=== PATIENT | female | born 1970 | race Caucasian/White ===

== ENCOUNTER 2017-01-24 17:08 | Observation (INO) | payer SELFPAY ==
--- NOTE | 2017-01-24 17:47 | DR.H&P ---
H&P - History & Physical for Day of: H&P Date: 01/24/17 - Chief Complaint Chief Complaint: Abdominal pain with nausea and vomiting - Allergies Allergies/Adverse Reactions: Allergies Allergy/AdvReac Type Severity Reaction Status Date / Time MS No Known Drug Allergy Allergy Verified 03/24/16 18:36 [No Known Drug Allergy] - History of Present Illness History of Present Illness: The patient is a 46-year-old white female who was seen in the clinic with complaints of abdominal pain with nausea vomiting. Patient complained of diffuse tenderness. States she has had persistent nausea with intermittent vomiting. Denies diarrhea but does admit to occasional constipation. Patient does have a history of celiac Still disease and states she is not a anything to affect it. Patient states that she is to the point she is not eating due to it aggravates her stomach and makes it worse. Patient does give history of diverticulosis as well. Patient was started on prednisone , Flagyl and Cipro with no improvement within 24 hours. Patient did present to the emergency room at [facility] on the evening of 01/23/2017. Patient subsequently admitted for further evaluation and management - Past Medical History Past Medical History: Anxiety, Depression, Hypertension - Past Surgical History Surgical History: , Cholecystectomy, [employer] Surgery, Hysterectomy, Other - Family History Family Medical History: Coronary Artery Disease - Social History Does patient currently use any type of tobacco product: No Have you used tobacco products in the last 12 months: No Type of Tobacco Use: None Does any household member use tobacco: No Alcohol Use: None Drug Use: None - Review of Systems Constitutional: Weakness, Malaise Eyes: No Symptoms Reported ENT: No Symptoms Reported Respiratory: No Symptoms Reported Cardiovascular: No Symptoms Reported Gastrointestinal: Nausea, Vomiting, Abdominal Pain Genitourinary: No Symptoms Reported Musculoskeletal: Arm Pain (right) Skin: No Symptoms Reported Neurological: No Symptoms Reported - Physical Exam Vital Signs: Blood Pressure 170/91 Oriented: Normal Eyes: Normal Ear: Normal Nose: Normal Throat: Normal Respiratory: Clear Throughout Cardiovascular: Normal : Normal Auscultation: Bowel Sounds: Normal Palpation: Normal Tenderness: Diffuse Skin: Normal Musculoskeletal: Normal Psychiatric: Normal Mood Description: Calm, Sad Affect: Quiet Speech Pattern: Clear - Assessment/Plan (1) Abdominal pain Qualifiers: Abdominal location: generalized Qualified Code(s): R10.84 - Generalized abdominal pain Status: Acute Plan: KUB, CT ABD, Labs, Protonix (2) Nausea & vomiting Qualifiers: Vomiting type: cyclical vomiting Vomiting Intractability: non-intractable Qualified Code(s): G43.A0 - Cyclical vomiting, not intractable Status: Acute Plan: Phenergan, Zofran, IVFs
[2017-01-24 19:14] VITALS: BMI 33.4
[2017-01-24] MEDS ORDERED: FLUVIRIN IM ONE (19:14)
[2017-01-24] MEDS ORDERED: PREVNAR 13 IM ONE (19:14)
[2017-01-24 19:38] LABS: BASOPHILS % (AUTO) 0.5 % (0.2-1.0); HEMATOCRIT 37.3 % (36.0-47.0); HEMOGLOBIN 12.1 g/dL (12.0-16.0); LYMPHOCYTES % (AUTO) 20.5 % (21.0-51.0); MEAN CORPUSCULAR HEMOGLOBIN 26.4 pg (27.0-34.0); MEAN CORPUSCULAR HGB CONC 32.3 g/dL (33.0-35.0); MEAN CORPUSCULAR VOLUME 81.8 fL (80.0-100.0); MONOCYTES # (AUTO) 0.2 x10^3/uL (0.3-0.8); MONOCYTES % (AUTO) 4.5 % (0.0-13.0); NEUTROPHILS # (AUTO) 3.5 x10^3/uL (2.2-4.8); NEUTROPHILS % (AUTO) 73.5 % (42.0-75.0); PLATELET COUNT 279 X10^3/uL (150.0-450.0); RED BLOOD COUNT 4.57 X10^6/uL (3.5-5.4); RED CELL DISTRIBUTION WIDTH 17.9 % (11.6-16.5); WHITE BLOOD COUNT 4.7 X10^3/uL (3.6-10.0)
[2017-01-24] MEDS: NS 1000 ML 1,000 ML IV SCH (19:41)
[2017-01-24] MEDS: MORPHINE SULFATE INJ 2 MG INJ IVP PRN (19:42)
[2017-01-24] MEDS: ZOFRAN INJ 4 MG VIAL IVP PRN (19:42)
[2017-01-24 19:50] LABS: ALANINE AMINOTRANSFERASE 45 Units/L (12-78); ALBUMIN 4.1 g/dL (3.4-5.0); ALKALINE PHOSPHATASE 147 Units/L (46-116); AMYLASE 47 Units/L (25-115); ASPARTATE AMINO TRANSFERASE 42 Units/L (15-37); BLOOD UREA NITROGEN 7 mg/dL (7-18); CALCIUM 9.2 mg/dL (8.5-10.1); CARBON DIOXIDE 28.2 mmol/L (21-32); CHLORIDE 106 mmol/L (98-107); COR NA(FOR HYPERGLY) 143 mmol/L (136-145); CREATININE 0.83 mg/dL (0.55-1.02); LIPASE 106 Units/L (73-393); SODIUM 142 mmol/L (136-145); TOTAL PROTEIN 7.4 g/dL (6.4-8.2); eGFR BLACK RACES > 60 (>60); eGFR NON BLACK RACES > 60 (>60)
--- NOTE | 2017-01-24 20:40 | RAD ---
HISTORY: Abdominal pain with nausea and vomiting Study: Frontal view of the chest, flat and upright views of the abdomen Comparison: None. Findings: Cardiomediastinal silhouette is normal in size. No focal consolidations, pleural effusions or pneumot horax. Osseous structures are without acute abnormality. Flat and upright views of the abdomen demonstrates a normal bowel gas pattern. No free air. No abnor mal calcifications or abnormal soft tissue shadows. No acute bony abnormalities. IMPRESSION: 1. No acute cardiopulmonary disease. 2. No evidence for acute abdominal pathology. Reported By:
[2017-01-24] MEDS ORDERED: PROTONIX INJ 40 MG VIAL IVP SCH (21:00)
[2017-01-24] MEDS: PROTONIX INJ 40 MG VIAL IVP SCH (21:04)
[2017-01-24 21:30] LABS: BILIRUBIN,URINE NEGATIVE (NEGATIVE); BLOOD/HEMOGLOBIN,URINE 1+ (NEGATIVE); GLUCOSE, URINE NEGATIVE (NEGATIVE); KETONES,URINE NEGATIVE (NEGATIVE); LEUKOCYTE ESTERASE ,URINE NEGATIVE (NEGATIVE); NITRITES,URINE NEGATIVE (NEGATIVE); PROTEIN,URINE NEGATIVE (NEGATIVE); UROBILINOGEN,URINE NORMAL (NORMAL)
[2017-01-24 21:38] LABS: APPEARANCE,URINE CLEAR (CLEAR); BACTERIA,URINE NEGATIVE /HPF (NEGATIVE); COLOR,URINE YELLOW (YELLOW); RBC,URINE 0-3 /HPF (NEGATIVE); SQUAMOUS EPITHELIAL CELL,UR RARE /HPF (NEGATIVE)
[2017-01-25] MEDS: PHENERGAN INJ 25 MG IVP PRN ×4 (00:09→22:20)
[2017-01-25] MEDS: MORPHINE SULFATE INJ 2 MG INJ IVP PRN ×4 (00:09→15:35)
[2017-01-25] MEDS: NS 1000 ML 1,000 ML IV SCH ×2 (05:29→16:17)
[2017-01-25] MEDS: PROTONIX INJ 40 MG VIAL IVP SCH ×2 (09:23→20:54)
[2017-01-25] MEDS ORDERED: NS 100 ML IV 100 ML IV ONE (11:45)
[2017-01-25] MEDS: ZOFRAN INJ 4 MG VIAL IVP PRN (15:35)
[2017-01-25] MEDS: CIPRO IV 400 MG PREMIX* 400 MG/200 ML IV.SOLN. IV SCH ×2 (16:16→20:52)
[2017-01-25] MEDS ORDERED: ZESTRIL TAB 20 MG ONE (20:26)
[2017-01-25] MEDS: LITHIUM CARBONATE (PLAIN) PO SCH (20:53)
[2017-01-25] MEDS: SOMA TAB 350 MG PO SCH (20:54)
[2017-01-25] MEDS: ZESTRIL TAB 20 MG PO SCH (20:54)
[2017-01-25] MEDS: AMBIEN PO SCH (20:54)
[2017-01-25] MEDS: LOPRESSOR TAB 25 MG PO SCH (20:54)
[2017-01-25] MEDS: ATIVAN TAB 1 MG PO PRN (20:55)
[2017-01-25] MEDS: BENTYL CAP 10 MG PO SCH (21:00)
[2017-01-25] MEDS: NEURONTIN CAP 400 MG PO SCH (21:00)
[2017-01-25] MEDS ORDERED: PATIENT'S HOME MEDICATION (Dicyclomine Hcl [Dicyclomine Hcl] 20 MG) PO SCH (22:00)
[2017-01-26] MEDS: NORCO 10/325 TAB PO PRN ×2 (00:13→09:08)
[2017-01-26] MEDS: NS 1000 ML 1,000 ML IV SCH ×3 (02:22→21:30)
[2017-01-26] MEDS: BENTYL CAP 10 MG PO SCH ×3 (05:42→21:30)
[2017-01-26] MEDS: NEURONTIN CAP 400 MG PO SCH ×3 (05:42→21:29)
[2017-01-26 06:03] LABS: BASOPHILS % (AUTO) 0.4 % (0.2-1.0); EOSINOPHILS # (AUTO) 0.1 x10^3/uL (0.0-0.2); EOSINOPHILS % (AUTO) 1.2 % (0.9-2.9); HEMOGLOBIN 10.9 g/dL (12.0-16.0); LYMPHOCYTES # (AUTO) 1.9 X10^3/uL (1.3-2.9); LYMPHOCYTES % (AUTO) 30.5 % (21.0-51.0); MEAN CORPUSCULAR HEMOGLOBIN 26.3 pg (27.0-34.0); MEAN PLATELET VOLUME 7.4 fL (7.4-11.0); MONOCYTES # (AUTO) 0.4 x10^3/uL (0.3-0.8); MONOCYTES % (AUTO) 6.9 % (0.0-13.0); NEUTROPHILS # (AUTO) 3.7 x10^3/uL (2.2-4.8); PLATELET COUNT 249 X10^3/uL (150.0-450.0); RED BLOOD COUNT 4.14 X10^6/uL (3.5-5.4); RED CELL DISTRIBUTION WIDTH 17.9 % (11.6-16.5); WHITE BLOOD COUNT 6.1 X10^3/uL (3.6-10.0)
[2017-01-26 06:06] LABS: ALANINE AMINOTRANSFERASE 41 Units/L (12-78); ALBUMIN 3.7 g/dL (3.4-5.0); ALKALINE PHOSPHATASE 119 Units/L (46-116); ASPARTATE AMINO TRANSFERASE 36 Units/L (15-37); BLOOD UREA NITROGEN 6 mg/dL (7-18); CARBON DIOXIDE 25.8 mmol/L (21-32); CHLORIDE 109 mmol/L (98-107); CREATININE 0.93 mg/dL (0.55-1.02); SODIUM 144 mmol/L (136-145); TOTAL PROTEIN 6.8 g/dL (6.4-8.2); eGFR BLACK RACES > 60 (>60); eGFR NON BLACK RACES > 60 (>60)
[2017-01-26] MEDS ORDERED: ZESTRIL TAB 20 MG ONE ×2 (09:04→21:12)
[2017-01-26] MEDS: CIPRO IV 400 MG PREMIX* 400 MG/200 ML IV.SOLN. IV SCH ×2 (09:09→21:22)
[2017-01-26] MEDS: PROTONIX INJ 40 MG VIAL IVP SCH ×2 (09:09→21:27)
[2017-01-26] MEDS: LOPRESSOR TAB 25 MG PO SCH ×2 (09:09→21:29)
[2017-01-26] MEDS: ZESTRIL TAB 20 MG PO SCH ×2 (09:09→21:29)
[2017-01-26] MEDS: LITHIUM CARBONATE (PLAIN) PO SCH ×2 (09:09→21:30)
[2017-01-26] MEDS: OXYBUTYNIN CHLORIDE ER PO SCH (09:09)
[2017-01-26] MEDS: SOMA TAB 350 MG PO SCH ×2 (09:09→21:30)
[2017-01-26] MEDS: ATIVAN TAB 1 MG PO PRN ×2 (09:16→21:30)
[2017-01-26] MEDS: VORTIOXETINE HYDROBROMIDE 10 MG PO SCH (11:32)
[2017-01-26] MEDS: FLAGYL IV PREMIX 500 MG BAG 500 MG/100 ML BAG IV SCH ×2 (14:21→21:23)
[2017-01-26] MEDS: DEMEROL INJ IVP PRN ×2 (15:40→21:24)
[2017-01-26] MEDS ORDERED: LITHIUM CARBONATE 300 MG PO SCH (21:00)
[2017-01-26] MEDS: AMBIEN PO SCH (21:30)
--- NOTE | 2017-01-26 22:26 | PCM.PROG ---
Progress Note - Progress Note for Day of Date: 01/26/17 - Subjective Subjective: CONTINUES TO COMPLAIN OF ABD PAIN. STATES WORSE AFTER EATING. STATES STOOL IS BROWN MUCOUS. STATES SHE FEELS BAD. DOES REQUEST ADDITIONAL PAIN MEDICATION. - Past Medical Family Social History Past Med/Fam/Surg Hx: No changes since H&P Allergies: Allergies No Known Drug Allergies Allergy (Verified 01/24/17 18:27) - Review of Systems ROS: No change since H&P - Vital Signs and I&O's Vital Signs: Temperature 98.1 F Pulse Rate [Right Radial] 78 Respiratory Rate 18 Blood Pressure [Right Arm] 144/75 Blood Pressure 170/91 O2 Sat by Pulse Oximetry 93 Intake and Output: Intake & Output 01/24/17 01/25/17 01/26/17 01/27/17 11:59 11:59 11:59 11:59 Intake Total 544 860 200 Output Total 700 2500 1100 Balance -256 -9790 -986 - Physical Exam Oriented: Normal Eyes: Normal Ear: Normal Nose: Normal Throat: Normal Respiratory: Normal Cardiovascular: Normal : Normal Auscultation: Bowel Sounds: Normal Palpation: Normal Tenderness: Diffuse Skin: Normal Musculoskeletal: Normal Psychiatric: Normal Mood Description: Calm, Sad Affect: Quiet Speech Pattern: Clear, Appropriate - Laboratory and Diagnostics Result Diagrams: 01/26/17 03:15 01/26/17 03:15 Labs: Laboratory WBC 6.1 X10^3/uL (3.6-10.0) 01/26/17 03:15 RBC 4.14 X10^6/uL (3.5-5.4) 01/26/17 03:15 Hgb 10.9 g/dL (12.0-16.0) L 01/26/17 03:15 Hct 34.0 % (36.0-47.0) L 01/26/17 03:15 MCV 82.0 fL (80.0-100.0) 01/26/17 03:15 MCH 26.3 pg (27.0-34.0) L 01/26/17 03:15 MCHC 32.0 g/dL (33.0-35.0) L 01/26/17 03:15 RDW 17.9 % (11.6-16.5) H 01/26/17 03:15 Plt Count 249 X10^3/uL (150.0-450.0) 01/26/17 03:15 MPV 7.4 fL (7.4-11.0) 01/26/17 03:15 Neut % 61.0 % (42.0-75.0) 01/26/17 03:15 Lymph % 30.5 % (21.0-51.0) 01/26/17 03:15 [place] % 6.9 % (0.0-13.0) 01/26/17 03:15 Eos % 1.2 % (0.9-2.9) 01/26/17 03:15 Baso % 0.4 % (0.2-1.0) 01/26/17 03:15 Neut # 3.7 x10^3/uL (2.2-4.8) 01/26/17 03:15 Lymph # 1.9 X10^3/uL (1.3-2.9) 01/26/17 03:15 [place] # 0.4 x10^3/uL (0.3-0.8) 01/26/17 03:15 Eos # 0.1 x10^3/uL (0.0-0.2) 01/26/17 03:15 Baso # 0.0 X10^3/uL (0.0-0.1) 01/26/17 03:15 Absolute Nucleated RBC 0.5 /100WBC 01/26/17 03:15 Sodium 144 mmol/L (136-145) 01/26/17 03:15 Corrected Sodium TNP 01/26/17 03:15 Potassium 3.5 mmol/L (3.5-5.1) 01/26/17 03:15 Chloride 109 mmol/L (98-107) H 01/26/17 03:15 Carbon Dioxide 25.8 mmol/L (21-32) 01/26/17 03:15 BUN 6 mg/dL (7-18) L 01/26/17 03:15 Creatinine 0.93 mg/dL (0.55-1.02) 01/26/17 03:15 Est GFR (MDRD) Af Amer > 60 (>60) 01/26/17 03:15 Est GFR (MDRD) Non-Af > 60 (>60) 01/26/17 03:15 Glucose 98 mg/dL (65-99) 01/26/17 03:15 Calcium 9.0 mg/dL (8.5-10.1) 01/26/17 03:15 Corrected Calcium TNP 01/26/17 03:15 Total Bilirubin 0.20 mg/dL (0.2-1.0) 01/26/17 03:15 AST 36 Units/L (15-37) 01/26/17 03:15 ALT 41 Units/L (12-78) 01/26/17 03:15 Alkaline Phosphatase 119 Units/L (46-116) H 01/26/17 03:15 Total Protein 6.8 g/dL (6.4-8.2) 01/26/17 03:15 Albumin 3.7 g/dL (3.4-5.0) 01/26/17 03:15 Globulin 3.1 g/dL (2.5-4.5) 01/26/17 03:15 Albumin/Globulin Ratio 1.2 Ratio (1.1-2.1) 01/26/17 03:15 Amylase 47 Units/L (25-115) 01/24/17 19:29 Lipase 106 Units/L (73-393) 01/24/17 19:29 Specimen Type Clean catch urine 01/24/17 20:46 Urine Color Yellow (YELLOW) 01/24/17 20:46 Urine Appearance Clear (CLEAR) 01/24/17 20:46 Urine pH 8.0 (5.0 - 8.0) 01/24/17 20:46 Ur Specific [place] 1.015 (1.000-1.030) 01/24/17 20:46 Urine Protein Negative (NEGATIVE) 01/24/17 20:46 Urine Glucose (UA) Negative (NEGATIVE) 01/24/17 20:46 Urine Ketones Negative (NEGATIVE) 01/24/17 20:46 Urine Occult Blood 1+ (NEGATIVE) 01/24/17 20:46 Urine Nitrite Negative (NEGATIVE) 01/24/17 20:46 Urine Bilirubin Negative (NEGATIVE) 01/24/17 20:46 Urine Urobilinogen Normal (NORMAL) 01/24/17 20:46 Ur Leukocyte Esterase Negative (NEGATIVE) 01/24/17 20:46 Urine RBC 0-3 /HPF (NEGATIVE) 01/24/17 20:46 Urine WBC 0-3 /HPF (NEGATIVE) 01/24/17 20:46 Ur Squamous Epith Cells Rare /HPF (NEGATIVE) 01/24/17 20:46 Urine Bacteria Negative /HPF (NEGATIVE) 01/24/17 20:46 Ur Culture Indicated? No/not indicated 01/24/17 20:46 Radiology Reviewed: Yes - Plan (1) Abdominal pain Status: Acute Qualifiers: Abdominal location: generalized Qualified Code(s): R10.84 - Generalized abdominal pain Plan: KUB, CT ABD, Labs, Protonix (2) Nausea & vomiting Status: Acute Qualifiers: Vomiting type: cyclical vomiting Vomiting Intractability: non-intractable Qualified Code(s): G43.A0 - Cyclical vomiting, not intractable Plan: Phenergan, Zofran, IVFs (3) Colitis Status: Acute Plan: IV CIPRO AND FLAGYL (4) Celiac disease Status: Acute Plan: GLUTEN FREE DIET.
[2017-01-27] MEDS: NEURONTIN CAP 400 MG PO SCH ×3 (05:19→21:32)
[2017-01-27] MEDS: BENTYL CAP 10 MG PO SCH ×3 (05:19→21:33)
[2017-01-27] MEDS: DEMEROL INJ IVP PRN ×4 (05:20→21:26)
[2017-01-27] MEDS: FLAGYL IV PREMIX 500 MG BAG 500 MG/100 ML BAG IV SCH ×3 (05:20→21:31)
[2017-01-27 05:22] LABS: BASOPHILS % (AUTO) 0.7 % (0.2-1.0); EOSINOPHILS # (AUTO) 0.1 x10^3/uL (0.0-0.2); EOSINOPHILS % (AUTO) 2.1 % (0.9-2.9); HEMATOCRIT 32.5 % (36.0-47.0); HEMOGLOBIN 10.5 g/dL (12.0-16.0); LYMPHOCYTES # (AUTO) 1.6 X10^3/uL (1.3-2.9); MEAN CORPUSCULAR HEMOGLOBIN 26.6 pg (27.0-34.0); MEAN CORPUSCULAR HGB CONC 32.3 g/dL (33.0-35.0); MEAN CORPUSCULAR VOLUME 82.2 fL (80.0-100.0); MEAN PLATELET VOLUME 7.4 fL (7.4-11.0); MONOCYTES # (AUTO) 0.3 x10^3/uL (0.3-0.8); MONOCYTES % (AUTO) 7.4 % (0.0-13.0); NEUTROPHILS # (AUTO) 2.5 x10^3/uL (2.2-4.8); NEUTROPHILS % (AUTO) 53.8 % (42.0-75.0); PLATELET COUNT 234 X10^3/uL (150.0-450.0); RED BLOOD COUNT 3.96 X10^6/uL (3.5-5.4); RED CELL DISTRIBUTION WIDTH 17.9 % (11.6-16.5); WHITE BLOOD COUNT 4.6 X10^3/uL (3.6-10.0)
[2017-01-27 05:30] LABS: BLOOD UREA NITROGEN 5 mg/dL (7-18); CALCIUM 8.9 mg/dL (8.5-10.1); CARBON DIOXIDE 28.4 mmol/L (21-32); CHLORIDE 109 mmol/L (98-107); CREATININE 0.81 mg/dL (0.55-1.02); SODIUM 145 mmol/L (136-145); eGFR BLACK RACES > 60 (>60); eGFR NON BLACK RACES > 60 (>60)
[2017-01-27] MEDS ORDERED: ZESTRIL TAB 20 MG ONE ×2 (09:35→20:11)
[2017-01-27] MEDS: CIPRO IV 400 MG PREMIX* 400 MG/200 ML IV.SOLN. IV SCH ×2 (09:43→20:18)
[2017-01-27] MEDS: SOMA TAB 350 MG PO SCH ×2 (09:43→20:19)
[2017-01-27] MEDS: PROTONIX INJ 40 MG VIAL IVP SCH ×2 (09:43→21:33)
[2017-01-27] MEDS: OXYBUTYNIN CHLORIDE ER PO SCH (09:43)
[2017-01-27] MEDS: LITHIUM CARBONATE (PLAIN) PO SCH ×2 (09:43→20:19)
[2017-01-27] MEDS: ZESTRIL TAB 20 MG PO SCH ×2 (09:43→20:19)
[2017-01-27] MEDS: LOPRESSOR TAB 25 MG PO SCH ×2 (09:44→21:32)
[2017-01-27] MEDS: VORTIOXETINE HYDROBROMIDE 10 MG PO SCH (11:18)
[2017-01-27] MEDS: NORCO 10/325 TAB PO PRN (15:33)
[2017-01-27] MEDS: NS 1000 ML 1,000 ML IV SCH (17:29)
[2017-01-27] MEDS: ZOFRAN INJ 4 MG VIAL IVP PRN (17:29)
[2017-01-27] MEDS: AMBIEN PO SCH (20:18)
[2017-01-27] MEDS: ATIVAN TAB 1 MG PO PRN (20:19)
[2017-01-27] MEDS: PHENERGAN INJ 25 MG IVP PRN (21:32)
--- NOTE | 2017-01-27 21:52 | PCM.PROG ---
Progress Note - Progress Note for Day of Date: 01/27/17 - Subjective Subjective: INTIALLY EARLY AFTERNOON WAS FEELING BETTER. ADVANCED DIET. PATIENT THEN HAD COMPLAINTS OF ABD PAIN. STATES WORSE AFTER EATING. STATED SHE IS RECEIVING MEALS WITH GLUTEN. STATES SHE FEELS BAD. DOES REQUEST ADDITIONAL PAIN MEDICATION. - Past Medical Family Social History Past Med/Fam/Surg Hx: No changes since H&P Allergies: Allergies No Known Drug Allergies Allergy (Verified 01/24/17 18:27) - Review of Systems ROS: No change since H&P - Vital Signs and I&O's Vital Signs: Temperature 98.2 F Pulse Rate [Right Radial] 68 Respiratory Rate 20 Blood Pressure [Right Arm] 116/70 Blood Pressure 170/91 O2 Sat by Pulse Oximetry 95 Intake and Output: Intake & Output 01/25/17 01/26/17 01/27/17 01/28/17 11:59 11:59 11:59 11:59 Intake Total 474 848 4909 240 Output Total 700 2500 1700 Balance -156 -1640 160 240 - Physical Exam Oriented: Normal Eyes: Normal Ear: Normal Nose: Normal Throat: Normal Respiratory: Normal Cardiovascular: Normal : Normal Auscultation: Bowel Sounds: Normal Palpation: Normal Tenderness: Diffuse Skin: Normal Musculoskeletal: Normal Psychiatric: Normal Mood Description: Calm, Sad Affect: Quiet Speech Pattern: Clear, Appropriate - Laboratory and Diagnostics Result Diagrams: 01/27/17 03:20 01/27/17 03:20 Labs: Laboratory WBC 4.6 X10^3/uL (3.6-10.0) 01/27/17 03:20 RBC 3.96 X10^6/uL (3.5-5.4) 01/27/17 03:20 Hgb 10.5 g/dL (12.0-16.0) L 01/27/17 03:20 Hct 32.5 % (36.0-47.0) L 01/27/17 03:20 MCV 82.2 fL (80.0-100.0) 01/27/17 03:20 MCH 26.6 pg (27.0-34.0) L 01/27/17 03:20 MCHC 32.3 g/dL (33.0-35.0) L 01/27/17 03:20 RDW 17.9 % (11.6-16.5) H 01/27/17 03:20 Plt Count 234 X10^3/uL (150.0-450.0) 01/27/17 03:20 MPV 7.4 fL (7.4-11.0) 01/27/17 03:20 Neut % 53.8 % (42.0-75.0) 01/27/17 03:20 Lymph % 36.0 % (21.0-51.0) 01/27/17 03:20 [place] % 7.4 % (0.0-13.0) 01/27/17 03:20 Eos % 2.1 % (0.9-2.9) 01/27/17 03:20 Baso % 0.7 % (0.2-1.0) 01/27/17 03:20 Neut # 2.5 x10^3/uL (2.2-4.8) 01/27/17 03:20 Lymph # 1.6 X10^3/uL (1.3-2.9) 01/27/17 03:20 [place] # 0.3 x10^3/uL (0.3-0.8) 01/27/17 03:20 Eos # 0.1 x10^3/uL (0.0-0.2) 01/27/17 03:20 Baso # 0.0 X10^3/uL (0.0-0.1) 01/27/17 03:20 Absolute Nucleated RBC 0.2 /100WBC 01/27/17 03:20 Sodium 145 mmol/L (136-145) 01/27/17 03:20 Corrected Sodium TNP 01/27/17 03:20 Potassium 3.7 mmol/L (3.5-5.1) 01/27/17 03:20 Chloride 109 mmol/L (98-107) H 01/27/17 03:20 Carbon Dioxide 28.4 mmol/L (21-32) 01/27/17 03:20 BUN 5 mg/dL (7-18) L 01/27/17 03:20 Creatinine 0.81 mg/dL (0.55-1.02) 01/27/17 03:20 Est GFR (MDRD) Af Amer > 60 (>60) 01/27/17 03:20 Est GFR (MDRD) Non-Af > 60 (>60) 01/27/17 03:20 Glucose 90 mg/dL (65-99) 01/27/17 03:20 Calcium 8.9 mg/dL (8.5-10.1) 01/27/17 03:20 Corrected Calcium TNP 01/26/17 03:15 Total Bilirubin 0.20 mg/dL (0.2-1.0) 01/26/17 03:15 AST 36 Units/L (15-37) 01/26/17 03:15 ALT 41 Units/L (12-78) 01/26/17 03:15 Alkaline Phosphatase 119 Units/L (46-116) H 01/26/17 03:15 Total Protein 6.8 g/dL (6.4-8.2) 01/26/17 03:15 Albumin 3.7 g/dL (3.4-5.0) 01/26/17 03:15 Globulin 3.1 g/dL (2.5-4.5) 01/26/17 03:15 Albumin/Globulin Ratio 1.2 Ratio (1.1-2.1) 01/26/17 03:15 Amylase 47 Units/L (25-115) 01/24/17 19:29 Lipase 106 Units/L (73-393) 01/24/17 19:29 Specimen Type Clean catch urine 01/24/17 20:46 Urine Color Yellow (YELLOW) 01/24/17 20:46 Urine Appearance Clear (CLEAR) 01/24/17 20:46 Urine pH 8.0 (5.0 - 8.0) 01/24/17 20:46 Ur Specific [place] 1.015 (1.000-1.030) 01/24/17 20:46 Urine Protein Negative (NEGATIVE) 01/24/17 20:46 Urine Glucose (UA) Negative (NEGATIVE) 01/24/17 20:46 Urine Ketones Negative (NEGATIVE) 01/24/17 20:46 Urine Occult Blood 1+ (NEGATIVE) 01/24/17 20:46 Urine Nitrite Negative (NEGATIVE) 01/24/17 20:46 Urine Bilirubin Negative (NEGATIVE) 01/24/17 20:46 Urine Urobilinogen Normal (NORMAL) 01/24/17 20:46 Ur Leukocyte Esterase Negative (NEGATIVE) 01/24/17 20:46 Urine RBC 0-3 /HPF (NEGATIVE) 01/24/17 20:46 Urine WBC 0-3 /HPF (NEGATIVE) 01/24/17 20:46 Ur Squamous Epith Cells Rare /HPF (NEGATIVE) 01/24/17 20:46 Urine Bacteria Negative /HPF (NEGATIVE) 01/24/17 20:46 Ur Culture Indicated? No/not indicated 01/24/17 20:46 - Plan (1) Abdominal pain Status: Acute Qualifiers: Abdominal location: generalized Qualified Code(s): R10.84 - Generalized abdominal pain Plan: CT ABD, Labs, Protonix (2) Nausea & vomiting Status: Acute Qualifiers: Vomiting type: cyclical vomiting Vomiting Intractability: non-intractable Qualified Code(s): G43.A0 - Cyclical vomiting, not intractable Plan: Phenergan, Zofran, IVFs (3) Colitis Status: Acute Plan: IV CIPRO AND FLAGYL (4) Celiac disease Status: Acute Plan: GLUTEN FREE DIET.
[2017-01-28] MEDS: NORCO 10/325 TAB PO PRN ×2 (00:33→16:58)
[2017-01-28] MEDS: DEMEROL INJ IVP PRN ×3 (04:11→21:45)
[2017-01-28 05:14] LABS: BASOPHILS % (AUTO) 0.3 % (0.2-1.0); EOSINOPHILS # (AUTO) 0.1 x10^3/uL (0.0-0.2); EOSINOPHILS % (AUTO) 1.6 % (0.9-2.9); HEMOGLOBIN 10.4 g/dL (12.0-16.0); LYMPHOCYTES # (AUTO) 1.2 X10^3/uL (1.3-2.9); LYMPHOCYTES % (AUTO) 18.4 % (21.0-51.0); MEAN CORPUSCULAR HEMOGLOBIN 26.7 pg (27.0-34.0); MEAN CORPUSCULAR HGB CONC 32.6 g/dL (33.0-35.0); MEAN PLATELET VOLUME 7.4 fL (7.4-11.0); MONOCYTES # (AUTO) 0.3 x10^3/uL (0.3-0.8); MONOCYTES % (AUTO) 5.4 % (0.0-13.0); NEUTROPHILS # (AUTO) 4.7 x10^3/uL (2.2-4.8); NEUTROPHILS % (AUTO) 74.3 % (42.0-75.0); PLATELET COUNT 234 X10^3/uL (150.0-450.0); RED BLOOD COUNT 3.91 X10^6/uL (3.5-5.4); RED CELL DISTRIBUTION WIDTH 17.6 % (11.6-16.5); WHITE BLOOD COUNT 6.4 X10^3/uL (3.6-10.0)
[2017-01-28 05:37] LABS: ALANINE AMINOTRANSFERASE 33 Units/L (12-78); ALBUMIN 3.4 g/dL (3.4-5.0); ALKALINE PHOSPHATASE 116 Units/L (46-116); ASPARTATE AMINO TRANSFERASE 30 Units/L (15-37); BLOOD UREA NITROGEN 4 mg/dL (7-18); CALCIUM 8.5 mg/dL (8.5-10.1); CARBON DIOXIDE 26.4 mmol/L (21-32); CHLORIDE 110 mmol/L (98-107); COR NA(FOR HYPERGLY) 145 mmol/L (136-145); CREATININE 0.89 mg/dL (0.55-1.02); SODIUM 144 mmol/L (136-145); TOTAL PROTEIN 6.3 g/dL (6.4-8.2); eGFR BLACK RACES > 60 (>60); eGFR NON BLACK RACES > 60 (>60)
[2017-01-28] MEDS: FLAGYL IV PREMIX 500 MG BAG 500 MG/100 ML BAG IV SCH ×2 (05:48→14:29)
[2017-01-28] MEDS: NS 1000 ML 1,000 ML IV SCH (05:48)
[2017-01-28] MEDS: NEURONTIN CAP 400 MG PO SCH ×3 (05:51→23:31)
[2017-01-28] MEDS: BENTYL CAP 10 MG PO SCH ×3 (05:51→23:30)
[2017-01-28] MEDS ORDERED: ZESTRIL TAB 20 MG ONE ×2 (09:18→23:22)
[2017-01-28] MEDS: PROTONIX INJ 40 MG VIAL IVP SCH (09:37)
[2017-01-28] MEDS: CIPRO IV 400 MG PREMIX* 400 MG/200 ML IV.SOLN. IV SCH ×2 (09:37→21:43)
[2017-01-28] MEDS: PHENERGAN INJ 25 MG IVP PRN (09:38)
[2017-01-28] MEDS: ZOFRAN INJ 4 MG VIAL IVP PRN (16:58)
[2017-01-28] MEDS: OXYBUTYNIN CHLORIDE ER PO SCH (17:00)
[2017-01-28] MEDS: LITHIUM CARBONATE (PLAIN) PO SCH ×2 (17:00→21:10)
[2017-01-28] MEDS: ZESTRIL TAB 20 MG PO SCH ×2 (17:00→23:31)
[2017-01-28] MEDS: LOPRESSOR TAB 25 MG PO SCH ×2 (17:00→21:10)
[2017-01-28] MEDS: SOMA TAB 350 MG PO SCH ×2 (17:01→21:12)
[2017-01-28] MEDS: VORTIOXETINE HYDROBROMIDE 10 MG PO SCH (17:07)
[2017-01-28] MEDS: ATIVAN TAB 1 MG PO PRN (17:08)
[2017-01-28] MEDS: AMBIEN PO SCH (21:43)
[2017-01-29] MEDS: FLAGYL IV PREMIX 500 MG BAG 500 MG/100 ML BAG IV SCH ×2 (00:30→05:50)
[2017-01-29] MEDS: PROTONIX INJ 40 MG VIAL IVP SCH ×2 (01:38→10:54)
[2017-01-29 05:25] LABS: BASOPHILS % (AUTO) 0.7 % (0.2-1.0); EOSINOPHILS # (AUTO) 0.2 x10^3/uL (0.0-0.2); EOSINOPHILS % (AUTO) 2.8 % (0.9-2.9); HEMATOCRIT 34.4 % (36.0-47.0); HEMOGLOBIN 11.1 g/dL (12.0-16.0); LYMPHOCYTES # (AUTO) 1.9 X10^3/uL (1.3-2.9); MEAN CORPUSCULAR HEMOGLOBIN 26.4 pg (27.0-34.0); MEAN CORPUSCULAR HGB CONC 32.3 g/dL (33.0-35.0); MEAN CORPUSCULAR VOLUME 81.9 fL (80.0-100.0); MEAN PLATELET VOLUME 7.6 fL (7.4-11.0); MONOCYTES # (AUTO) 0.3 x10^3/uL (0.3-0.8); MONOCYTES % (AUTO) 6.3 % (0.0-13.0); NEUTROPHILS % (AUTO) 55.2 % (42.0-75.0); PLATELET COUNT 235 X10^3/uL (150.0-450.0); RED CELL DISTRIBUTION WIDTH 17.7 % (11.6-16.5); WHITE BLOOD COUNT 5.5 X10^3/uL (3.6-10.0)
[2017-01-29 05:32] LABS: ALANINE AMINOTRANSFERASE 34 Units/L (12-78); ALBUMIN 3.7 g/dL (3.4-5.0); ALKALINE PHOSPHATASE 124 Units/L (46-116); ASPARTATE AMINO TRANSFERASE 28 Units/L (15-37); BLOOD UREA NITROGEN 6 mg/dL (7-18); CALCIUM 8.8 mg/dL (8.5-10.1); CARBON DIOXIDE 27.2 mmol/L (21-32); CHLORIDE 109 mmol/L (98-107); CREATININE 0.78 mg/dL (0.55-1.02); SODIUM 146 mmol/L (136-145); TOTAL PROTEIN 6.6 g/dL (6.4-8.2); eGFR BLACK RACES > 60 (>60); eGFR NON BLACK RACES > 60 (>60)
[2017-01-29] MEDS: DEMEROL INJ IVP PRN (05:46)
[2017-01-29] MEDS: BENTYL CAP 10 MG PO SCH (05:53)
[2017-01-29] MEDS: NEURONTIN CAP 400 MG PO SCH (05:53)
[2017-01-29] MEDS ORDERED: PNEUMOVAX 23 IM ONE (09:50)
[2017-01-29] MEDS ORDERED: FLUVIRIN IM ONE (09:50)
[2017-01-29] MEDS ORDERED: ZESTRIL TAB 20 MG ONE (10:08)
[2017-01-29] MEDS: CIPRO IV 400 MG PREMIX* 400 MG/200 ML IV.SOLN. IV SCH (10:52)
[2017-01-29] MEDS: SOMA TAB 350 MG PO SCH (10:54)
[2017-01-29] MEDS: OXYBUTYNIN CHLORIDE ER PO SCH (10:54)
[2017-01-29] MEDS: ZESTRIL TAB 20 MG PO SCH (10:55)
[2017-01-29] MEDS: LOPRESSOR TAB 25 MG PO SCH (10:55)
[2017-01-29] MEDS: LITHIUM CARBONATE (PLAIN) PO SCH (10:55)
[2017-01-29] MEDS: NORCO 10/325 TAB PO PRN (11:01)
[2017-01-29] MEDS: VORTIOXETINE HYDROBROMIDE 10 MG PO SCH (11:03)
[2017-01-29 16:04] VITALS: BP 130/72
== END 2017-01-29 17:05 | disposition home or self-care (01) ==
LOC: MED/SURG 17:08
PROVIDERS: ADMIT Internal Medicine; ATTEND Internal Medicine
PROC: 3E0234Z Introduction of Serum, Toxoid and Vaccine into Muscle, Percutaneous Approach (ICD-10-PCS; principal; 2017-01-29)
DX: R10.84 Generalized abdominal pain (principal); R11.2 Nausea with vomiting, unspecified; K59.09 Other constipation; I10 Essential (primary) hypertension; F41.8 Other specified anxiety disorders; F32.89 Other specified depressive episodes; K90.0 Celiac disease; K52.89 Other specified noninfective gastroenteritis and colitis; Z23 Encounter for immunization; Z87.19 Personal history of other diseases of the digestive system
CPT/HCPCS: 36415; 72110; 74022; 74176; 74177; 80048; 80053; 81001; 82150; 83690; 85025; 85652; 86141; 90686; 94762; A4216; A4222; C9113; S0030; S0195; G0378; J0744; J2175; J2270; J2405; J2550

== ENCOUNTER 2017-05-14 11:51 | Observation (INO) | payer SELFPAY ==
--- NOTE | 2017-05-14 12:35 | DR.H&P ---
H&P - History & Physical for Day of: H&P Date: 05/14/17 - Chief Complaint Chief Complaint: ABD PAIN WITH NAUSEA - Allergies Allergies/Adverse Reactions: Allergies Allergy/AdvReac Type Severity Reaction Status Date / Time No Known Drug Allergies Allergy Verified 01/24/17 18:27 - History of Present Illness History of Present Illness: The patient is a 47wf who presents to the [facility] with complaint of abdominal pain radiating into right upper quadrant and flank area since Saturday. States she has had nausea but no vomiting. States stool has mucous in it. Denies hematochezia or melena. Denies fever. Has tried take home and OTC meds with no relief. Has history of Celiacs disease. States she watches what she eats carefully. - Past Medical History Past Medical History: Anxiety, Depression, Hypertension Additional Medical History: Celiacs Disease - Past Surgical History Surgical History: , Cholecystectomy, Hysterectomy, Tonsillectomy, Other Additional Surgical History: EGD/Colonoscopy - Family History Family Medical History: Cancer, Hypertension - Social History Does patient currently use any type of tobacco product: No Have you used tobacco products in the last 12 months: No Type of Tobacco Use: None Does any household member use tobacco: No Alcohol Use: None Drug Use: None - Review of Systems Constitutional: Malaise Eyes: No Symptoms Reported ENT: No Symptoms Reported Respiratory: No Symptoms Reported Cardiovascular: No Symptoms Reported Gastrointestinal: Nausea, Abdominal Pain Genitourinary: No Symptoms Reported Musculoskeletal: No Symptoms Reported Skin: No Symptoms Reported Neurological: No Symptoms Reported - Physical Exam Vital Signs: Blood Pressure [Left Arm] 130/72 Blood Pressure [Right Arm] 146/75 Blood Pressure 130/72 Oriented: Normal Eyes: Normal Ear: Normal Nose: Normal Throat: Normal Respiratory: Clear Throughout Cardiovascular: Normal : Normal Auscultation: Bowel Sounds: Normal Palpation: Normal Tenderness: RUQ, Moderate Skin: Normal Musculoskeletal: Normal Psychiatric: Normal Mood Description: Calm Affect: Flat Speech Pattern: Clear - Assessment/Plan (1) Abdominal pain Qualifiers: Abdominal location: generalized Qualified Code(s): R10.84 - Generalized abdominal pain Status: Acute Plan: CT Abd, Labs, Pepcid, Antiemetics, Morphine (2) Celiac disease Status: Acute (3) Colitis Status: Acute Plan: CT Abd, Labs, Pepcid, Antiemetics, Morphine, Flagyl, Cipro
[2017-05-14] MEDS ORDERED: PHENERGAN INJ 25 MG IVP PRN (14:30)
[2017-05-14] MEDS ORDERED: ZOFRAN INJ 4 MG VIAL IVP PRN (14:30)
[2017-05-14] MEDS ORDERED: PEPCID 20 MG IV PREMIX* 20 MG/50 ML BAG IV PRN (14:30)
[2017-05-14] MEDS ORDERED: FLAGYL IV PREMIX 500 MG BAG 500 MG/100 ML BAG IV SCH (15:00)
[2017-05-14 15:10] LABS: BASOPHILS # (AUTO) 0.1 X10^3/uL (0.0-0.1); BASOPHILS % (AUTO) 0.9 % (0.2-1.0); EOSINOPHILS % (AUTO) 0.8 % (0.9-2.9); HEMATOCRIT 37.2 % (36.0-47.0); HEMOGLOBIN 11.9 g/dL (12.0-16.0); LYMPHOCYTES # (AUTO) 1.5 X10^3/uL (1.3-2.9); LYMPHOCYTES % (AUTO) 26.3 % (21.0-51.0); MEAN CORPUSCULAR HEMOGLOBIN 26.3 pg (27.0-34.0); MEAN CORPUSCULAR HGB CONC 31.9 g/dL (33.0-35.0); MEAN CORPUSCULAR VOLUME 82.6 fL (80.0-100.0); MEAN PLATELET VOLUME 7.1 fL (7.4-11.0); MONOCYTES # (AUTO) 0.3 x10^3/uL (0.3-0.8); MONOCYTES % (AUTO) 5.9 % (0.0-13.0); NEUTROPHILS # (AUTO) 3.8 x10^3/uL (2.2-4.8); NEUTROPHILS % (AUTO) 66.1 % (42.0-75.0); PLATELET COUNT 378 X10^3/uL (150.0-450.0); RED BLOOD COUNT 4.51 X10^6/uL (3.5-5.4); RED CELL DISTRIBUTION WIDTH 19.3 % (11.6-16.5); WHITE BLOOD COUNT 5.8 X10^3/uL (3.6-10.0)
[2017-05-14 15:16] LABS: ALANINE AMINOTRANSFERASE 26 Units/L (12-78); ALBUMIN 4.1 g/dL (3.4-5.0); ALKALINE PHOSPHATASE 139 Units/L (46-116); AMYLASE 51 Units/L (25-115); ASPARTATE AMINO TRANSFERASE 21 Units/L (15-37); BLOOD UREA NITROGEN 7 mg/dL (7-18); CALCIUM 9.1 mg/dL (8.5-10.1); CARBON DIOXIDE 26.4 mmol/L (21-32); CHLORIDE 105 mmol/L (98-107); CREATININE 0.82 mg/dL (0.55-1.02); LIPASE 118 Units/L (73-393); SODIUM 140 mmol/L (136-145); TOTAL PROTEIN 7.8 g/dL (6.4-8.2); eGFR BLACK RACES > 60 (>60); eGFR NON BLACK RACES > 60 (>60)
[2017-05-14 16:01] VITALS: BMI 30.7
[2017-05-14] MEDS: NS 1000 ML 1,000 ML IV SCH (16:22)
[2017-05-14] MEDS: FLAGYL IV PREMIX 500 MG BAG 500 MG/100 ML BAG IV SCH ×2 (16:23→23:00)
[2017-05-14] MEDS: MORPHINE SULFATE INJ 2 MG INJ IVP PRN ×2 (16:23→20:55)
[2017-05-14] MEDS: CIPRO IV 400 MG PREMIX* 400 MG/200 ML IV.SOLN. IV SCH (21:00)
[2017-05-14] MEDS ORDERED: CIPRO IV 400 MG PREMIX* 400 MG/200 ML IV.SOLN. IV SCH (21:00)
[2017-05-14 21:26] LABS: BILIRUBIN,URINE NEGATIVE (NEGATIVE); BLOOD/HEMOGLOBIN,URINE NEGATIVE (NEGATIVE); GLUCOSE, URINE NEGATIVE (NEGATIVE); KETONES,URINE NEGATIVE (NEGATIVE); LEUKOCYTE ESTERASE ,URINE NEGATIVE (NEGATIVE); NITRITES,URINE NEGATIVE (NEGATIVE); PH,URINE 6.5 (5.0 - 8.0); PROTEIN,URINE NEGATIVE (NEGATIVE); UROBILINOGEN,URINE NORMAL (NORMAL)
[2017-05-14 21:28] LABS: APPEARANCE,URINE CLEAR (CLEAR); BACTERIA,URINE NEGATIVE /HPF (NEGATIVE); COLOR,URINE YELLOW (YELLOW); RBC,URINE NEG /HPF (NEGATIVE); SQUAMOUS EPITHELIAL CELL,UR NEGATIVE /HPF (NEGATIVE)
--- NOTE | 2017-05-14 22:11 | CT ---
CT abdomen without contrast Indication: Mid abdominal pain Comparison: 01/27/2017 Technique: CT images of the abdomen were obtained without contrast. Automatic exposure control was ut ilized. Findings: No acute skeletal abnormality identified. Interbody hardware at L5-S1 is grossly stable. Th e lung bases are clear. Previous cholecystectomy is noted. Evaluation of the abdominal pelvic viscera is limited without cont rast. Accounting for this, the liver, spleen, stomach, duodenum, pancreas, adrenals, and kidneys are within normal limits. No significant thickening or dilatation of the visualized lower GI tract is olive reciated. A few scattered colonic diverticula are noted. The visualized appendix is normal. No free f luid or adenopathy is observed. Impression: No acute process identified to explain patient's symptoms. Colonic diverticulosis. Previous cholecystectomy. Reported By:
[2017-05-14] MEDS ORDERED: NORCO 5/325 MG TAB PO PRN (23:28)
[2017-05-14] MEDS ORDERED: AMBIEN PO PRN (23:29)
[2017-05-15] MEDS: MORPHINE SULFATE INJ 2 MG INJ IVP PRN ×3 (03:05→12:40)
[2017-05-15] MEDS: FLAGYL IV PREMIX 500 MG BAG 500 MG/100 ML BAG IV SCH ×3 (04:58→14:42)
[2017-05-15] MEDS: NS 1000 ML 1,000 ML IV SCH ×2 (07:16→11:30)
[2017-05-15] MEDS: CIPRO IV 400 MG PREMIX* 400 MG/200 ML IV.SOLN. IV SCH (08:58)
[2017-05-15] MEDS ORDERED: NORCO 10/325 TAB PO PRN (09:22)
[2017-05-15 12:16] LABS: BASOPHILS % (AUTO) 0.6 % (0.2-1.0); HEMATOCRIT 34.6 % (36.0-47.0); HEMOGLOBIN 11.1 g/dL (12.0-16.0); LYMPHOCYTES # (AUTO) 1.6 X10^3/uL (1.3-2.9); LYMPHOCYTES % (AUTO) 34.8 % (21.0-51.0); MEAN CORPUSCULAR HEMOGLOBIN 26.6 pg (27.0-34.0); MEAN CORPUSCULAR HGB CONC 32.1 g/dL (33.0-35.0); MEAN CORPUSCULAR VOLUME 82.9 fL (80.0-100.0); MONOCYTES # (AUTO) 0.3 x10^3/uL (0.3-0.8); MONOCYTES % (AUTO) 6.1 % (0.0-13.0); NEUTROPHILS # (AUTO) 2.6 x10^3/uL (2.2-4.8); NEUTROPHILS % (AUTO) 57.5 % (42.0-75.0); PLATELET COUNT 342 X10^3/uL (150.0-450.0); RED BLOOD COUNT 4.17 X10^6/uL (3.5-5.4); RED CELL DISTRIBUTION WIDTH 19.4 % (11.6-16.5); WHITE BLOOD COUNT 4.5 X10^3/uL (3.6-10.0)
[2017-05-15] MEDS ORDERED: PATIENT'S HOME MEDICATION (Dicyclomine Hcl [Dicyclomine Hcl] 20 MG) PO SCH (14:00)
[2017-05-15] MEDS ORDERED: BENTYL CAP 10 MG PO SCH (14:00)
[2017-05-15] MEDS ORDERED: NEURONTIN CAP 400 MG PO SCH (14:00)
[2017-05-15 17:15] VITALS: BP 120/76
[2017-05-15] MEDS ORDERED: LITHIUM CARBONATE (PLAIN) PO SCH (21:00)
[2017-05-15] MEDS ORDERED: REGLAN TAB 10 MG PO SCH (21:00)
[2017-05-15] MEDS ORDERED: PATIENT'S HOME MEDICATION (Amitriptyline Hcl [Amitriptyline Hcl] 1 TAB) PO SCH (21:00)
[2017-05-15] MEDS ORDERED: ZANTAC PO SCH (21:00)
[2017-05-15] MEDS ORDERED: LITHIUM CARBONATE 300 MG PO SCH (21:00)
[2017-05-15] MEDS ORDERED: ZESTRIL TAB 20 MG PO SCH (21:00)
[2017-05-15] MEDS ORDERED: LOPRESSOR TAB 25 MG PO SCH (21:00)
[2017-05-15] MEDS ORDERED: ELAVIL PO SCH (21:00)
[2017-05-15] MEDS ORDERED: PATIENT'S HOME MEDICATION (Ranitidine Hcl [Zantac] 1 TAB) PO SCH (21:00)
[2017-05-16] MEDS ORDERED: OXYBUTYNIN CHLORIDE 10 MG PO SCH (09:00)
[2017-05-16] MEDS ORDERED: OXYBUTYNIN CHLORIDE ER PO SCH (09:00)
[2017-05-16] MEDS ORDERED: NORVASC TAB 5 MG PO SCH (09:00)
[2017-05-16] MEDS ORDERED: DITROPAN TAB 5 MG PO SCH (09:00)
== END 2017-05-15 18:00 | disposition home or self-care (01) ==
LOC: MED/SURG 11:51 → UNDOADMOB 11:51 → MED/SURG 13:10
PROVIDERS: ADMIT Internal Medicine; ATTEND Internal Medicine
DX: K52.89 Other specified noninfective gastroenteritis and colitis (principal); K90.0 Celiac disease; K57.30 Diverticulosis of large intestine without perforation or abscess without bleeding; R10.11 Right upper quadrant pain; R10.84 Generalized abdominal pain
CPT/HCPCS: 36415; 74150; 80053; 81001; 82150; 82270; 83690; 85025; 87086; A4216; A4222; S0030; G0378; J0744; J2270; J2405; J2550